=== PATIENT | female | born 1950 | race Caucasian/White ===

== ENCOUNTER 2016-08-23 03:02 | Inpatient (IN) | payer OTHER ==
[~2016-08-23] VITALS: Ht 165.1 cm; Wt 88.5 kg
[~2016-08-23 03:02] MED LIST: DITROPAN XL5 M1 PO; RESTASIS1 EACH OPH; TOPAMAX100 M1 PO
[2016-08-23] MEDS ORDERED: COLACE100 M1 PO (13:39)
[2016-08-23] MEDS ORDERED: ASPIRIN EC325 M2 PO (13:39)
[2016-08-23] MEDS ORDERED: MIRALAX17 G1 PO (13:40)
[2016-08-23] MEDS ORDERED: PRILOSEC OTC20 M1 PO (13:40)
[2016-08-23] MEDS ORDERED: DILAUDID2 M1 PO (13:40)
--- NOTE | 2016-08-23 13:47 | Patient Discharge Instructions ---
Discharge Instructions General Discharge Information You were seen/treated for: LEFT KNEE PAIN SECONDARY TO UNILATERAL PRIMARY OSTEOARTHRITIS You had these procedures: LEFT TOTAL KNEE REPLACEMENT Watch for these problems: Increasing pain despite the use of pain medications. Increasing redness, warmth , swelling. Drainage of any type from incision. Inability to bear weight on left leg. Fever >101.5 degrees. Do not soak the wound: Yes No bath, but you may shower: Yes Other wound care: Keep wound clean and dry No ointments of any type at any time, no exceptions. Daily dry dressing changes to start post op day 2. Special Instructions: Aspirin 325 to be taken twice daily for protection against blood clot formation, take with food. Colace and miralax for bowel health to protect against constipation associated with the use of pain medication. Diet Continue normal diet: Yes Recommended Diet: Regular Additional DIET Information: Advance as tolerated Activity Full Activity/No Limits: No Activity Self Limited: Yes Pounds, do NOT lift more than: 10 Additional ACTIVITY Info: Weight bear as tolerated on left leg Acute Coronary Syndrome Inclusion Criteria At DC or during hospital stay patient has or had the following: ACS DIAGNOSIS No Discharge Core Measures Meds if any: Prescribed or Continued at Discharge Meds if any: NOT Prescribed or Continued at Discharge Congestive Heart Failure Inclusion Criteria At DC or during hospital stay patient has or had the following: CHF DIAGNOSIS No Discharge Core Measures Meds if any: Prescribed or Continued at Discharge Meds if any: NOT Prescribed or Continued at Discharge Cerebrovascular accident Inclusion Criteria At DC or during hospital stay patient has or had the following: CVA/TIA Diagnosis No Discharge Core Measures Meds if any: Prescribed or Continued at Discharge Meds if any: NOT Prescribed or Continued at Discharge Venous thromboembolism Inclusion Criteria VTE Diagnosis No VTE Type NONE VTE Confirmed by (Test) NONE Discharge Core Measures - Per Current guidelines, there needs to be overlap - treatment for the first 5 days of Warfarin therapy. - If discharged on Warfarin prior to 5 days of - overlap therapy, the patient will need to be - assessed for post discharge needs including - *Post discharge parental anticoagulation - *Warfarin and/or parental anticoagulation education - *Follow up date to check INR post discharge At least 5 days overlap therapy as Inpatient No Meds if any: Prescribed or Continued at Discharge Note: Overlap Therapy is Warfarin and Anticoagulant Meds if any: NOT Prescribed or Continued at Discharge
--- NOTE | 2016-08-23 13:50 | Admission Core Measures ---
Admission Meds I reviewed the following Meds: Current Medications Sig/Lenin Start time Last Medication Dose Stop Time Status Admin Acetaminophen 975 MG ONCE 08/23 NR (Tylenol) 08/23 2358 Cefazolin Sodium 2,000 MG ONCE 08/23 NR (Kefzol-Ancef Inj) 08/23 2358 Oxybutynin Chloride 2.5 MG BID 08/230 AC (Ditropan 2.5MG Tab(1/2 of a 5mg tab)) Oxycodone HCl 10 MG ONCE 08/23 0000 NR (Roxicodone) 08/23 2358 Topiramate 100 MG DAILY 08/24 1000 AC (Topamax) Topiramate 200 MG AT BEDTIME 08/23 2199 AC (Topamax) Acute Coronary Syndrome Inclusion Criteria ACS Diagnosis No Inpatient Core Measures LDL Reminder: If No, please order W/I first 24hr of stay Congestive Heart Failure Inclusion Criteria CHF Diagnosis No Cerebrovascular accident Inclusion Criteria CVA/TIA Diagnosis No Inpatient Core Measures Bedside Swallow Eval Reminder: If BSE failed, place ST order Antithrombotic Reminder: Order Antithrombotic Medication by end of day 2 Antithrombotic Reminder: Document Reason Antithrombotic Not ordered by end of day 2 AFIB/Flutter Reminder: If Present, add to problem list AFIB/Flutter Reminder: Order Anticoag Medication for pts with AFIB/Flutter Atherosclerosis Reminder: If Present, add to problem list LDL Reminder: If No, please order W/I first 24hr of stay PT Order Reminder: If No, please order Venous thromboembolism Inpatient Core Measures VTE Risk Factors: Age > 40, Surgery No [facility] VTE prophylaxis d/t No contraindications No VTE Pharm Prophylaxis d/t No contraindications Inclusion Criteria - Per Current guidelines, there needs to be overlap - treatment for the first 5 days of Warfarin therapy. - Parenteral Anticoagulation (IV or SC) needs to be - given along with Warfarin therapy. VTE Diagnosis No VTE Type NONE VTE Confirmed by (Test) NONE Problem List As ranked by this Provider includes Assessment & Plan 1. Unilateral primary osteoarthritis, left knee HOME MEDS Home Med List Cyclosporine (Restasis) 0.05 % DROPERETTE 1 GTT OPH BID DRY EYE (Reported) Oxybutynin Chloride (Ditropan XL) 5 MG TAB.ER.24 1 TAB PO DAILY URINARY INCONTINENCE (Reported) Topiramate (Topamax) 100 MG TABLET 1 TAB PO BID MIGRAINE (Reported)
--- NOTE | 2016-08-23 13:57 | Surgical Discharge Summary ---
Visit Information Visit Dates Admission Date: 08/23/16 Discharge Date: 08/26/16 History of Present Illness Chief Complaint: Left knee pain related to unilateral primary osteoarthritis Surgical History Pertinent Surgical History: non-contributory Review of Systems: See H&P Hospital Course Course Attending Physician: GABBY MATIAS MD Primary Care Physician: SHIVANI PYLE MD Hospital Course: Deborah was admitted to the hospital on 08/23/2016 for an elective left total knee replacement. She tolerated the procedure well and was transferred to a general surgical floor. There, her vital signs were stable and within normal limits and her neurovascular status remained intact. Her diet was advanced and tolerated and her pain was controlled with po pain medications. She voided spontaneously. She was evaluated and treated by physical therapy and deemed appropriate for discharge to [facility]. Allergies: Coded Allergies: No Known Allergies (08/22/16) Disposition Summary Disposition Principal Diagnosis: Left knee unilateral primary osteoarthritis Additional Diagnosis: none Discharge Disposition: SNF Discharge Instructions General Discharge Information Code Status: Full Code Patient's Diet: regular, advance as tolerated Patient's Activity: wbat Follow-Up Instructions/Appts: Follow up with dr. matias in 6 weeks from date of surgery. call office to confirm and/or arrange appointment. Medications at Discharge Discharge Medications: Continue taking these medications: Cyclosporine (Restasis) 0.05 % DROPERETTE 1 Drop In the eye TWICE DAILY Topiramate (Topamax) 100 MG TABLET 1 Tablet ORAL TWICE DAILY Instructions: 1 TAB IN AM... 2 TANS IN PM Oxybutynin Chloride (Ditropan XL) 5 MG TAB.ER.24 1 Tablet ORAL DAILY Start taking the following new medications: Aspirin (Ecotrin*) 325 MG TABLET.DR 1 Tablet ORAL TWICE DAILY Qty = 60 No Refills Docusate Sodium (Colace) 100 MG CAPSULE 1 Capsule ORAL TWICE DAILY Qty = 14 No Refills Instructions: DISCONTINUE USE IF YOU DEVELOP LOOSE STOOL OR DIARRHEA Polyethylene Glycol 3350 (Miralax) 17 GRAM POWD.PACK 1 Packet ORAL DAILY Qty = 7 No Refills Instructions: dissolve in water, DISCONTINUE USE IF YOU DEVELOP LOOSE STOOL OR DIARRHEA Hydromorphone HCl (Dilaudid) 2 MG TABLET 1-2 Tablet ORAL EVERY 4-6 HOURS as needed for PAIN Qty = 36 No Refills Omeprazole Magnesium (Prilosec Otc) 20 MG TABLET.DR 1 Tablet ORAL DAILY Qty = 30 No Refills
--- NOTE | 2016-08-23 15:21 | PN- Orthopedic ---
Subjective Subjective: The patient was seen this afternoon postoperatively. She reports her pain is under adequate control and has no other complaints at the current time. Objective Vital Signs and I&Os Intake & Output 08/23 0808/23 0000 08/22 0808/22 0000 Intake Total Output Total Balance Patient 195 lb Weight Vital signs: Blood pressure 142/76, pulse 70, temperature 97.3, O2 saturation 98 % on room air I's and O's: 1000 ML's in of lactated Ringer's/600 ML's out of urine via Nguyen catheter/EBL 150 Physical Exam: Gen.: Alert and in no obvious distress Skin: Warm and dry Cardiac: S1-S2 regular Pulmonary: Bilateral breath sounds are equal and slightly decreased at bases Extremities: Bilateral lower extremities are warm without calf tenderness or significant edema. Gross motor and sensory are intact. Left lower extremity dressing is clean, dry, and intact. There is an On-Q in place. Assessment/Plan Assessment/Plan Assessment: 65-year-old female status post left total knee arthroplasty. Postoperative the patient is progressing as expected and her pain is under adequate control. Plan: Out of bed with physical therapy patient is weightbearing as tolerated Continue current pain regiment 2 doses of postoperative prophylactic antibiotics GI and DVT prophylaxis Start aspirin 325 mg by mouth twice a day first dose tonight Advance diet as tolerated Hep-Lock IV fluid and DC Nguyen catheter in the morning Resume home medications Incentive spirometry Core Measures/Miscellaneous Nguyen Catheter Date In: 08/23/16 Still Needed? Yes Venous Thromboembolism VTE Risk Factors: Age > 40, Surgery VTE Contraindications: No Contraindications VTE Diagnosis: No VTE Type: NONE VTE Confirmed by (Test): NONE Beta Marva Is Beta Marva a Home Med? No Antibiotics Is Patient on Antibiotics? Yes If Yes: prophylaxis
[2016-08-23 16:00] VITALS: BP 128/70
--- NOTE | 2016-08-23 18:05 | NUR ---
LATE ENTRY NSG NOTE: PATIENT ARRIVED TO FLOOR FROM PACU VIA STRETCHER ACCOMPANIED BY DISTRIBUTION; PATIENT AWAKE A/OX3; RA; VSS (SEE CHARTING); IVF HUNG BY HOSPITAL TELEVISION RENTAL CLERK AND RUNING ON PUMP PER ORDER; STARK IN PLACE, PLACED IN OR; ON-Q INTACT TO LT ADDUCTOR RUNNING AT 8 ML/HR; ALPS ON; PATIENT WEARING HER GLASSES; PATIENT ORIENTED TO ROOM; CALL CHAMBERS IN REACH; PAIN CONTROLLED AT THIS TIME; KARTIK CONT TO MONITOR
--- NOTE | 2016-08-23 18:40 | Operative Report ---
Operative/Inv Procedure Report Surgery Date: 08/23/16 Name of Procedure: Left total knee replacement Pre-Operative Diagnosis: Primary left knee DJD Post-Operative Diagnosis: Same Estimated Blood Loss: 50ml to 100ml Surgeon/Commodity Industry Analyst: POLLY BAKER,GABBY Larkin Anesthesia: block Operative/Procedure Note Note: Description of Procedure: The patient was taken to the operating room and positively identified. After induction of spinal anesthesia and administration of appropriate pre-operative antibiotics, the patient was positioned supine on the operating room table and all bony prominences were well padded. A well-padded pneumatic tourniquet was placed on the left upper thigh. After performing a surgical timeout, the left lower extremity was prepped and draped in the usual sterile fashion. After exsanguination with Esmarch the tourniquet was inflated to 250mm of mercury. A standard medial parapatellar approach was made to the knee. This was carried down through skin and subcutaneous tissue to the level of the fascia. Meticulous hemostasis was maintained with Bovie electrocautery. The extensor mechanism and patellar retinaculum were opened sharply and the patella was everted. The infrapatellar fat was resected in order to improve exposure. Osteophytes were trimmed from the patella and femoral condyles and the patella was re-everted and tucked laterally. A medial release was performed and the cruciate ligaments were resected. The tibia was then subluxed anteriorly. Utilizing the appropriate extra-medullary guide, the proximal tibia was trimmed perpendicular to the long axis of the tibial shaft. Attention was then turned to the femur. After opening the medullary canal, the distal femoral cut was made in 6 degrees of valgus utilizing the appropriate intra-medullary guide. The extension gap was checked and found to be appropriate. The femur was then sized and the remainder of the femoral cuts were made with a size 2 4-in-1 femoral cutting guide. The flexion gap was checked and found to be symmetric and appropriate. The knee was then trialed with a size 2 femoral component, a size 2 tibial component and a size 9 mm polyethylene insert. The patella was trimmed to accept an A 32 patella. This yielded excellent range of motion, stability and patellar tracking. All trial components were removed and the knee was copiously irrigated with sterile saline. All components were cemented into place with [place] Simplex cement. All the components were of the Latanya Triathlon knee system of the above stated sizes. The knee was again irrigated after cementation. The extensor mechanism and patellar retinaculum were repaired using interrupted #1 vicryl suture. The skin was re-approximated with 2-0 vicryl and closed with tony. A sterile dressing was applied, the tourniquet was deflated, the patient was awakened and taken to the recovery room in satisfactory condition.
[2016-08-23 22:30] VITALS: BP 116/52
[2016-08-24 06:26] VITALS: BP 116/76
[2016-08-24 08:48] LABS: ABSOLUTE BASOPHIL COUNT 0 /CUMM (0.0-0.2); ABSOLUTE EOSINOPHIL COUNT 0.1 /CUMM (0.0-0.7); ABSOLUTE GRANULOCYTE CT 5.6 /CUMM (1.4-6.5); ABSOLUTE LYMPH COUNT 1.6 /CUMM (1.2-3.4); ABSOLUTE MONOCYTE COUNT 0.8 /CUMM (0.10-0.60); BASOPHIL % 0.4 % (0.0-2.0); EOSINOPHIL % 1.5 % (0-5); GRANULOCYTE % 68.4 % (42.2-75.2); HEMATOCRIT 30.9 % (37-47); MEAN CORPUSCULAR HGB 30.4 PG (27.0-31.0); MEAN CORPUSCULAR HGB CONC 33.3 G/DL (33.0-37.0); MEAN CORPUSCULAR VOLUME 91.1 FL (81.0-99.0); MEAN PLATELET VOLUME 8.1 FL (7.4-10.4); PLATELET COUNT 218 /CUMM (130-400); RBC DISTRIBUTION WIDTH 13.5 % (11.5-14.5); RED BLOOD CELL CT 3.39 /CUMM (4.20-5.40); WHITE BLOOD CELL COUNT 8.2 /CUMM (4.8-10.8)
--- NOTE | 2016-08-24 10:59 | PN- Orthopedic ---
Subjective Subjective: Patient is comfortable, pain is controlled, no voiced complaints, no chest pain no nausea no vomiting no fever no flulike illness. Objective Vital Signs and I&Os Vital Signs Date Time Temp Pulse Resp B/P B/P Pulse O2 O2 Flow FiO2 Mean Ox Delivery Rate 08/24 0749 83 98 Room Air Room Air 08/24 06 98.0 100 20 116/76 83 Room Air 08/23 2230 98.0 92 18 116/52 96 Room Air 08/23 1600 97.8 70 16 128/70 100 Room Air Intake & Output 08/24 1600 08/24 0800 08/24 0000 08/23 1600 08/23 0800 08/23 0000 Intake Total 1380 465 Output Total 1600 1100 Balance -220 -635 Intake, IV 900 225 Intake, Oral 480 240 Output, Urine 1600 1100 Patient 195 lb Weight Weight Reported by Patient Measurement Method Physical Exam: Well-developed well-nourished no apparent distress. HEENT: Atraumatic, extraocular motion intact Neck: Supple, no lymphadenopathy Respiratory: No respiratory distress Extremities: No edema LEFT lower extremity dressing in place, Range of motion is 0-[address] On Q in place Neurovascularly intact distally Bilateral calves are supple, nontender. Neuro: Alert and oriented x3 Psych: Mood affect normal, normal memory normal judgment. Skin: Warm and dry, no rash on exposed skin Results Last 48 Hours of Labs: Laboratory Tests 08/24 0624 Chemistry Sodium (137 - 145 mmol/L) 141 Potassium (3.5 - 5.1 mmol/L) 4.2 Chloride (98 - 107 mmol/L) 111 H Carbon Dioxide (22 - 30 mmol/L) 20 L Anion Gap (5 - 16) 10 BUN (7 - 17 mg/dL) 16 Creatinine (0.5 - 1.0 mg/dL) 0.6 Estimated GFR (>60 ml/min) > 60 BUN/Creatinine Ratio (7 - 25 %) 26.7 H Hematology CBC w Diff NO MAN DIFF REQ WBC (4.8 - 10.8 /CUMM) 8.2 RBC (4.20 - 5.40 /CUMM) 3.39 L Hgb (12.0 - 16.0 G/DL) 10.3 L Hct (37 - 47 %) 30.9 L MCV (81.0 - 99.0 FL) 91.1 MCH (27.0 - 31.0 PG) 30.4 RDW (11.5 - 14.5 %) 13.5 Plt Count (130 - 400 /CUMM) 218 MPV (7.4 - 10.4 FL) 8.1 Gran % (42.2 - 75.2 %) 68.4 Lymphocytes % (20.5 - 51.1 %) 20.2 L Monocytes % (1.7 - 9.3 %) 9.5 H Eosinophils % (0 - 5 %) 1.5 Basophils % (0.0 - 2.0 %) 0.4 Absolute Granulocytes (1.4 - 6.5 /CUMM) 5.6 Absolute Lymphocytes (1.2 - 3.4 /CUMM) 1.6 Absolute Monocytes (0.10 - 0.60 /CUMM) 0.8 H Absolute Eosinophils (0.0 - 0.7 /CUMM) 0.1 Absolute Basophils (0.0 - 0.2 /CUMM) 0 PUBS MCHC (33.0 - 37.0 G/DL) 33.3 Assessment/Plan Assessment/Plan Postop day 1 status post left total knee arthroplasty -Orthopedically stable -Labs stable -Continue on Q -Aspirin 325 mg twice a day for DVT prophylaxis -GI prophylaxis -Out of bed with physical therapy -Postoperative antibiotics completed -DC IV fluids as patient is tolerating a regular diet -Anticipate discharge to short-term rehabilitation in 1-2 days Core Measures/Miscellaneous Nguyen Catheter Date In: 08/23/16 Venous Thromboembolism VTE Risk Factors: Age > 40, Surgery VTE Contraindications: No Contraindications VTE Diagnosis: No VTE Type: NONE VTE Confirmed by (Test): NONE Beta Marva Is Beta Marva a Home Med? No Antibiotics Is Patient on Antibiotics? Yes If Yes: prophylaxis
[2016-08-24 14:25] VITALS: BP 116/70
[2016-08-24 23:19] VITALS: BP 128/70
[2016-08-25 07:45] VITALS: BP 126/64
--- NOTE | 2016-08-25 08:10 | PN- Orthopedic ---
Subjective Subjective: POD #2 s/p left TKR. Resting comfortably in bed. No complaints offered. Tolerating a regular diet. Voiding spontaneously. Working with PT well. Objective Vital Signs and I&Os Vital Signs Date Time Temp Pulse Resp B/P B/P Pulse O2 O2 Flow FiO2 Mean Ox Delivery Rate 08/25 0745 99.0 98 20 126/64 98 Room Air 08/24 2319 98.3 101 18 128/70 96 Room Air 08/24 1425 97.4 85 20 116/70 97 Room Air Intake & Output 08/25 1600 08/25 0800 08/25 0000 08/24 1600 08/24 0800 08/24 0000 Intake Total 600 1040 1400 1380 465 Output Total 1300 7159 536 9892 1100 Balance -700 -810 1100 -220 -635 Intake, IV 600 900 225 Intake, Oral 600 1040 800 480 240 Output, Urine 1300 6045 886 7752 1100 Patient 195 lb Weight Weight Reported by Patient Measurement Method Physical Exam: Gen: AAOx3 in NAD Cor: S1+S2+ Lungs: CTA rita Abd: soft, NT, ND, +Bs x4 Ext: left lower extremity dressing removed. Incision C/D/I with tony. No surrounding erythema noted. No drainage from wound. Lateral knee with ecchymotic area. Dorsiflexion and plantar flexion intact. Foot warm. DP pulse palpable. Sensation grossly intact. Current Medications: Current Medications Sig/Lenin Start time Last Medication Dose Route Stop Time Status Admin Acetaminophen 1,000 MG Q6 08/23 1800 DC 08/24 IV 08/24 1201 1108 Artificial Tears 2 GTT DAILY NEEDED PRN 08/23 1730 AC 08/23 OU 2049 Aspirin 325 MG BID 08/23 2199 AC 08/24 PO 211 Cyclosporine 1 GTT BID 08/24 1100 AC 08/24 OPH 211 Dextrose/Sodium 1,000 ML .[id number] 08/23 161 DC 08/24 Chloride IV 0516 Docusate Sodium 100 MG BID 08/23 2200 AC 08/24 PO 211 Hydromorphone HCl 2 MG Q4P PRN 08/23 161 AC PO Hydromorphone HCl 4 MG Q4P PRN 08/23 1615 AC 08/25 PO 0716 Ketorolac 15 MG Q8P PRN 08/23 161 AC Tromethamine IV 08/26 1601 Morphine Sulfate 2 MG Q2P PRN 08/23 1615 AC IV Omeprazole 40 MG DAILY AC 08/24 0700 AC 08/24 PO 0523 Oxybutynin Chloride 2.5 MG BID 08/23 2199 AC 08/24 PO 211 Polyethylene Glycol 17 GM DAILY 08/24 1000 AC 08/24 PO 1026 Ropivacaine 500 ML ONCE ONE 08/23 1430 DC ON-Q Ball 1 BAG INJ 08/25 0211 Topiramate 100 MG DAILY 08/24 1000 DC PO Topiramate 100 MG DAILY 08/24 1000 AC 08/24 PO 1027 Topiramate 200 MG AT BEDTIME 08/23 2199 AC 08/24 PO 2115 Results Last 48 Hours of Labs: Laboratory Tests 08/25 623 Chemistry Sodium (137 - 145 mmol/L) 141 Potassium (3.5 - 5.1 mmol/L) 4.2 Chloride (98 - 107 mmol/L) 111 H Carbon Dioxide (22 - 30 mmol/L) 20 L Anion Gap (5 - 16) 10 BUN (7 - 17 mg/dL) 16 Creatinine (0.5 - 1.0 mg/dL) 0.6 Estimated GFR (>60 ml/min) > 60 BUN/Creatinine Ratio (7 - 25 %) 26.7 H Hematology CBC w Diff NO MAN DIFF REQ WBC (4.8 - 10.8 /CUMM) 8.2 RBC (4.20 - 5.40 /CUMM) 3.39 L Hgb (12.0 - 16.0 G/DL) 10.3 L Hct (37 - 47 %) 30.9 L MCV (81.0 - 99.0 FL) 91.1 MCH (27.0 - 31.0 PG) 30.4 RDW (11.5 - 14.5 %) 13.5 Plt Count (130 - 400 /CUMM) 218 MPV (7.4 - 10.4 FL) 8.1 Gran % (42.2 - 75.2 %) 68.4 Lymphocytes % (20.5 - 51.1 %) 20.2 L Monocytes % (1.7 - 9.3 %) 9.5 H Eosinophils % (0 - 5 %) 1.5 Basophils % (0.0 - 2.0 %) 0.4 Absolute Granulocytes (1.4 - 6.5 /CUMM) 5.6 Absolute Lymphocytes (1.2 - 3.4 /CUMM) 1.6 Absolute Monocytes (0.10 - 0.60 /CUMM) 0.8 H Absolute Eosinophils (0.0 - 0.7 /CUMM) 0.1 Absolute Basophils (0.0 - 0.2 /CUMM) 0 PUBS MCHC (33.0 - 37.0 G/DL) 33.3 Assessment/Plan Assessment/Plan A: POD #2 s/p left TKR; AVSS Plan: Will discuss with case management regarding timing of discharge. Needs to have BM- will order Dulcolax AL. D/C planning. Core Measures/Miscellaneous Nguyen Catheter Date In: 08/23/16 Venous Thromboembolism VTE Risk Factors: Age > 40, Surgery VTE Contraindications: No Contraindications VTE Diagnosis: No VTE Type: NONE VTE Confirmed by (Test): NONE Beta Marva Is Beta Marva a Home Med? No Antibiotics Is Patient on Antibiotics? Yes If Yes: prophylaxis
[2016-08-25 15:00] VITALS: BP 110/58
[2016-08-25 22:49] VITALS: BP 108/68
[2016-08-26 06:04] VITALS: BP 124/78
--- NOTE | 2016-08-26 08:13 | PN- Orthopedic ---
Subjective Subjective: POD #3 s/p left TKR. No complaints at present. Denies CP/SOB, N/V, F/C. Says her son will pick her up today at 11:30am. Objective Vital Signs and I&Os Vital Signs Date Time Temp Pulse Resp B/P B/P Pulse O2 O2 Flow FiO2 Mean Ox Delivery Rate 08/26 0604 98.3 100 18 124/78 97 Room Air 08/25 2249 98.4 88 18 108/68 95 Room Air 08/25 1500 98.4 90 18 110/58 99 Room Air 08/25 0911 Room Air Room Air Intake & Output 08/26 1600 08/26 0800 08/26 0000 08/25 1600 08/25 0800 08/25 0000 Intake Total 500 1500 538 439 3717 Output Total 1100 1000 1050 1300 1850 Balance -600 500 -250 -700 -810 Intake, Oral 500 1500 006 646 5622 Number 1 Bowel Movements Output, Urine 1100 1000 1050 1300 1850 Physical Exam: Gen: AAOx3 in NAD Cor: S1+S2+ Lungs: CTA rita Abd: soft, NT, ND, +BS x4 Ext: left knee dressing changed. Incision C/D/I with tony. No surrounding erythema or drainage noted. Minimal tenderness to palpation. No calf tenderness to rita lower extremities. Feet warm, DP pulses palpable. Dorsiflexion and plantar flexion intact. Sensation/motor exam grossly intact. Current Medications: Current Medications Sig/Lenin Start time Last Medication Dose Route Stop Time Status Admin Artificial Tears 2 GTT DAILY NEEDED PRN 08/23 1730 AC 08/23 OU 2049 Aspirin 325 MG BID 08/23 2199 AC 08/25 PO 204 Bisacodyl 20 MG ONCE ONE 08/25 0830 DC 08/25 ME 08/25 0831 0818 Cyclosporine 1 GTT BID 08/24 1100 AC 08/25 OPH 205 Docusate Sodium 100 MG BID 08/23 220 AC 08/25 PO 0923 Hydromorphone HCl 2 MG Q4P PRN 08/23 161 AC PO Hydromorphone HCl 4 MG Q4P PRN 08/23 1615 AC 08/26 PO 0217 Ketorolac 15 MG Q8P PRN 08/23 161 AC Tromethamine IV 08/26 1601 Morphine Sulfate 2 MG Q2P PRN 08/23 161 AC IV Omeprazole 40 MG DAILY AC 08/24 0700 AC 08/24 PO 0523 Oxybutynin Chloride 2.5 MG BID 08/23 2200 AC 08/25 PO 0923 Polyethylene Glycol 17 GM DAILY 08/24 1000 AC 08/25 PO 0924 Topiramate 100 MG DAILY 08/24 1000 AC 08/25 PO 0923 Topiramate 200 MG AT BEDTIME 08/23 2200 AC 08/25 PO 2048 Assessment/Plan Assessment/Plan A: POD #3 s/p left TKR; AVSS. Plan: D/C to [facility] Core Measures/Miscellaneous Nguyen Catheter Date In: 08/23/16 Venous Thromboembolism VTE Risk Factors: Age > 40, Surgery VTE Contraindications: No Contraindications VTE Diagnosis: No VTE Type: NONE VTE Confirmed by (Test): NONE Beta Marva Is Beta Marva a Home Med? No Antibiotics Is Patient on Antibiotics? Yes If Yes: prophylaxis
[2016-08-26 12:03] VITALS: BP 124/78
--- NOTE | 2016-08-26 12:55 | NUR ---
NURSING NOTE: PATIENT A/OX3, PAIN CONTROLLED. DISCHARGED TO SNF. MESSAGE LEFT FOR [facility] FOR REPORT. WILL CALL AGAIN TO TRY LATER. PATIENT LEFT WITH SON AND ALL BELONGINGS AND PAPERWORK FOR FACLITY.
== END 2016-08-26 12:20 | DRG 470 ==
LOC: SDA 03:02 → ENRESERV 14:04 → 2NB 15:45 → ENPENDDIS 08-26 07:36 → 2NB 08-26 12:20
PROVIDERS: Nurse Practitioner; ADMIT Orthopaedic Surgery
PROC: 0SRD0J9 Replacement of Left Knee Joint with Synthetic Substitute, Cemented, Open Approach (ICD-10-PCS; principal; 2016-08-23)
DX: M17.12 Unilateral primary osteoarthritis, left knee (principal); G43.909 Migraine, unspecified, not intractable, without status migrainosus; K21.9 Gastro-esophageal reflux disease without esophagitis; K58.9 Irritable bowel syndrome, unspecified
CPT/HCPCS: 2NBSP; 82436; 88305; 97110-GO; 97116-GO; 97161-GP; 97530-GO; C1713; J0131; J0690; J1100; J2405; J2795; J7042